=== PATIENT | male | born 1975 | race Hispanic/Latino ===

== ENCOUNTER → 2017-06-18 | Outpatient (CLI) | payer OTHER, MEDICARE | END | disposition home or self-care (01) | LOC: OIH 09:43 | PROVIDERS: ATTEND Internal Medicine | DX: M47.26 Other spondylosis with radiculopathy, lumbar region (principal) | CPT/HCPCS: 72100 ==

== ENCOUNTER → 2017-07-28 | Outpatient (CLI) | payer OTHER, MEDICARE | END | disposition home or self-care (01) | LOC: OIH 09:18 | PROVIDERS: ATTEND Internal Medicine | DX: M47.896 Other spondylosis, lumbar region (principal); M41.86 Other forms of scoliosis, lumbar region; M25.78 Osteophyte, vertebrae | CPT/HCPCS: 72100 ==

== ENCOUNTER → 2018-07-12 | Outpatient (CLI) | payer OTHER | END | disposition home or self-care (01) | LOC: OIH 09:53 | PROVIDERS: ATTEND Internal Medicine | DX: I10 Essential (primary) hypertension (principal) | CPT/HCPCS: 71046 ==

== ENCOUNTER 2018-10-06 08:47 | Emergency (ER) | payer OTHER, MEDICARE ==
[2018-10-06] MEDS ORDERED: KETOROLAC TROMETHAMINE 60 MG/2 ML VIAL ONE (09:27)
[2018-10-06] MEDS ORDERED: METHYLPREDNISOLONE SOD SUCC 125MG/2ML VIAL ONE (09:27)
[2018-10-06 09:35] LABS: APPEARANCE,URINE Clear (CLEAR); BILIRUBIN,URINE Negative (NEGATIVE); COLOR,URINE Yellow (YELLOW); GLUCOSE, URINE (UA) Negative (NEGATIVE); KETONES,URINE Negative (NEGATIVE); LEUKOCYTE ESTERASE ,URINE Negative (NEGATIVE); NITRATE,URINE Negative (NEGATIVE); OCCULT BLOOD,URINE Trace (NEGATIVE); PROTEIN,URINE Negative (NEGATIVE)
[2018-10-06 09:41] LABS: AMPHET/METH SCREEN,URINE NEGATIVE (NEGATIVE); BARBITURATE SCREEN, URINE NEGATIVE (NEGATIVE); BENZODIAZEPINES SCREEN,URINE POSITIVE (NEGATIVE); CANNABINOID SCREEN,URINE NEGATIVE (NEGATIVE); COCAINE SCREEN,URINE NEGATIVE (NEGATIVE); OPIATE SCREEN,URINE NEGATIVE (NEGATIVE); PHENCYCLIDINE SCREEN,URINE NEGATIVE (NEGATIVE)
[2018-10-06 09:44] LABS: BACTERIA,URINE Rare /HPF (None Seen); RBC,URINE 0-1 /HPF (0-1); SQUAMOUS EPITHELIAL CELL,UR 0-2 /HPF (0-2); WBC,URINE None Seen /HPF (0-1)
== END 2018-10-06 11:22 | disposition home or self-care (01) ==
LOC: EDH 08:47
DX: M51.06 Intervertebral disc disorders with myelopathy, lumbar region (principal); M51.9 Unspecified thoracic, thoracolumbar and lumbosacral intervertebral disc disorder; J45.909 Unspecified asthma, uncomplicated
CPT/HCPCS: 72131; 80305; 81001; 96372 ×2; 99285; J1885; J2930

== ENCOUNTER 2020-10-10 03:09 | Emergency (ER) | payer OTHER, MEDICARE ==
[2020-10-10] MEDS ORDERED: LIDOCAINE 5% TOPICAL PATCH TP ONE (03:28)
[2020-10-10] MEDS ORDERED: KETOROLAC TROMETHAMINE 60 MG/2 ML VIAL ONE (03:28)
[2020-10-10] MEDS ORDERED: ORPHENADRINE CITRATE 30 MG/ML ML ONE (03:28)
[2020-10-10] MEDS ORDERED: HYDROCODONE/ACETAMINOPHEN 10/325 MG TAB ONE (03:29)
== END 2020-10-10 05:07 | disposition home or self-care (01) ==
LOC: EDH 03:09
DX: M62.830 Muscle spasm of back (principal); M54.5 Low back pain; J45.909 Unspecified asthma, uncomplicated
CPT/HCPCS: 72100; 96372 ×2; 99284; J1885; J2360

== ENCOUNTER 2020-10-10 22:37 | Emergency (ER) | payer OTHER, MEDICARE ==
[2020-10-11] MEDS ORDERED: SODIUM CHLORIDE 0.9% 1000ML 2,000 ML IV ONE (02:24)
[2020-10-11] MEDS ORDERED: DIAZEPAM 5 MG TABLET ONE (02:36)
[2020-10-11] MEDS ORDERED: KETOROLAC TROMETHAMINE 30MG/ML ONE (02:36)
== END 2020-10-11 03:59 | disposition home or self-care (01) ==
LOC: EDH 22:37
DX: M54.31 Sciatica, right side (principal); J45.909 Unspecified asthma, uncomplicated
CPT/HCPCS: 72100; 96372 ×3; 99283; 99284; J1885 ×2; J2360; J7030

== ENCOUNTER 2022-12-22 07:08 | Emergency (ER) | payer OTHER, MEDICARE ==
[~2022-12-22] VITALS: Ht 177.8 cm; Wt 108.9 kg
[2022-12-22] MEDS ORDERED: ORPHENADRINE CITRATE 30 MG/ML ML ONE ×2 (07:30→07:37)
[2022-12-22] MEDS ORDERED: KETOROLAC 60 MG VIAL (30MG/ML) IM ONE ×2 (07:30→07:36)
[2022-12-22] MEDS ORDERED: OXYC-38 PO (07:34)
[2022-12-22] MEDS ORDERED: IBUP-2077 PO (07:34)
[2022-12-22] MEDS ORDERED: CYCL10TA16 PO (07:34)
[2022-12-22 08:12] VITALS: BP 134/72
== END 2022-12-22 08:13 | disposition home or self-care (01) ==
LOC: EDH 07:08
DX: M54.50 Low back pain, unspecified (principal); R53.1 Weakness; J45.909 Unspecified asthma, uncomplicated; K21.9 Gastro-esophageal reflux disease without esophagitis; Z98.890 Other specified postprocedural states
CPT/HCPCS: 99284; 96372 ×2; J1885